=== PATIENT | male | born 1960 | race Two or more races ===

== ENCOUNTER 2025-04-13 14:19 | Emergency (ER) | payer MEDICAID, SELFPAY ==
[2025-04-13 14:28] VITALS: BP 150/81; PULSE 66; RESP 18; TEMP 36.5; O2SAT 98
[2025-04-13 14:29] VITALS: BMI 31.1
--- NOTE | 2025-04-13 14:30 | XR_ITS ---
Examination: CT abdomen and pelvis without contrast. Coronal 3-D reconstructions. Sagittal 2-D reconstructions. Date and time of exam: April 13, 2025, 1501 hours INDICATIONS: Hematuria and difficulty urinating today COMPARISON: September 23, 2017 CTDI: vol (mGy): 10.9 DLP: (mGycm): 651 Technique: Axial images of the abdomen have been obtained, 3 mm slice thickness Intravenous contrast material has not been administered. Low dose protocols were performed. One or more of the following dose reduction techniques were used; automated exposure control, adjustment of the mA and/or KV according to patient size, use of iterative reconstruction technique. Findings: Liver irregular in contour no liver or splenic lesions Contracted gallbladder No pancreatic or adrenal mass No renal or ureteral calculi, no hydronephrosis Aorta is not enlarged No bowel obstruction Normal appendix No diverticulitis 2 mm calcification at the anterior margin of the urinary bladder Moderate prostatomegaly Fat-containing inguinal hernias IMPRESSION: No renal or ureteral calculi, no hydronephrosis 2 mm calcification at the anterior margin possibly in the wall of the urinary bladder, clinical correlation advised Normal appendix No bowel obstruction diverticulitis or free air Moderate prostatomegaly
--- NOTE | 2025-04-13 14:31 | PD.EDRME ---
Rapid Medical Screening Exam RME Arrival date/time: 04/13/25 14:19 64-year-old male presents to the emergency department complaint of abdominal pain Chief Complaint: Urogenital-Male Vital signs: Vital Signs Temperature 97.7 F 04/13/25 14:28 Pulse Rate 66 04/13/25 14:28 Respiratory Rate 18 04/13/25 14:28 Blood Pressure 150/81 H 04/13/25 14:28 Pulse Oximetry (%) 98 04/13/25 14:28 Oxygen Delivery Method Room Air 04/13/25 14:28 Vital signs reviewed by provider: Yes Exam: On exam well-appearing does not appear ill or toxic no acute distress Clinical Impression: Lab work and imaging obtained
[2025-04-13 14:58] LABS: Collection Type, Urine Clean Catch; Squamous Epithelial Cell,Urine 0 /hpf (0-5)
[2025-04-13 15:08] LABS: Basophils # (Auto) 0.1 Thou/mm3 (0.0-0.2); Basophils % (Auto) 1 % (0-2.5); Eosinophils # (Auto) 0.2 Thou/mm3 (0.0-0.5); Eosinophils % (Auto) 3 % (0-10); Hematocrit 39.5 % (41.0-53.0); Hemoglobin 13.5 g/dL (13.5-16.0); Immature Granulocytes Auto 0.03 Thou/mm3 (0.00-0.00); Lymphocytes # (Auto) 1.3 Thou/mm3 (1.0-4.8); Lymphocytes % (Auto) 23 % (10-50); Mean Corpuscular HGB Conc 34.2 g/dl (31.0-37.0); Mean Corpuscular Hemoglobin 31.5 pg (25.0-35.0); Mean Corpuscular Volume 92 fL (80-100); Monocytes # (Auto) 0.8 Thou/mm3 (0.0-0.8); Monocytes % (Auto) 14 % (0-12); Neutrophils # (Auto) 3.5 Thou/mm3 (1.8-7.7); Neutrophils % (Auto) 59 % (37-80); Nucleated Red Blood Cell # 0.00 Thou/mm3 (0.00-0.00); Nucleated Red Blood Cell % 0 /100 WBC (0); Platelet Count 153 Thou/mm3 (140-440); RDW Standard Deviation 43.6 fL (35.1-43.9); Red Blood Count 4.28 Miln/mm3 (4.50-5.90); White Blood Count 5.9 Thou/mm3 (3.8-10.6)
[2025-04-13 15:11] LABS: Bilirubin,Urine Negative (Negative); Blood,Urine Negative (Negative); Clarity,Urine Clear (Clear/Hazy); Color,Urine Colorless (Lt Yel-Yel); Culture Indicated,Urine Not Indicated; Glucose, Urine Negative (Negative); Ketones,Urine Negative (Negative); Leukocyte Esterase,Urine Negative (Negative); Nitrite,Urine Negative (Negative); PH,Urine 6.5 (5.0-7.0); Protein,Urine Negative (Neg - Trace); RBC,Urine < 1 /hpf (0-3); Specific Gravity,Urine 1.009 (1.001-1.035); Urobilinogen,Urine Negative mg/dL (0.0-1.0); WBC,Urine < 1 /hpf (0-5)
[2025-04-13 15:19] LABS: Alanine Aminotransferase 18 U/L (10-49); Albumin, Serum 4.6 gm/dL (3.4-4.8); Albumin/Globulin Ratio 1.9 (1.2-2.2); Alkaline Phosphatase 82 U/L (46-116); Anion Gap 6 (7-16); Aspartate Amino Transferase 23 U/L (0-34); BUN/Creatinine Ratio 10 Ratio (12-20); Bilirubin,Total 0.3 mg/dL (0.3-1.2); Blood Urea Nitrogen 11 mg/dL (9-23); Calcium 9.6 mg/dL (8.3-10.6); Calcium (Corrected) 9.6 mg/dL (8.5-10.1); Carbon Dioxide 28.4 mMol/L (20.0-31.0); Chloride 105 mMol/L (98-107); Creatinine (Component) 1.1 mg/dL (0.6-1.3); Estimated Creatinine Clearance 82.5 mL/min (>60); Globulin 2.4 gm/dL (2.3-3.5); Glucose 127 mg/dL (74-106); Lipase 42 U/L (12-53); Osmolality,Calculated 278 (275-295); Potassium 4.6 mMol/L (3.4-5.1); Sodium 139 mMol/L (136-145); Total Protein 7.0 gm/dL (5.7-8.2); eGFR > 60 See Note
--- NOTE | 2025-04-13 15:44 | EDNOTE_ITS ---
ED Male Genitalurinary RME/HPI General Chief complaint: Urogenital-Male Stated complaint: Blood in urine X 1, trouble urinating Time Seen by Provider: 04/13/25 15:43 Arrival date/time: 04/13/25 14:19 64-year-old male with history of enlarged prostate presents to the emergency department today for complaints of urinary hesitancy ongoing x 1 month patient also reports scant amount of blood in his urine patient reports no fever nausea vomiting no back pain Limitations: no limitations RME / HPI RME / HPI Narrative: 04/13/25 14:19 64-year-old male presents to the emergency department complaint of abdominal pain Exam: On exam well-appearing does not appear ill or toxic no acute distress Impression: Lab work and imaging obtained Related Data Home Medications ?Medication ?Instructions ?Recorded ?Confirmed albuterol sulfate 90 mcg/actuation 2 puff inhalation Q 6H PRN Wheezing 11/16/21 11/16/21 aerosol inhaler alprazolam 0.5 mg tablet 0.5 mg PO QDAY 11/17/2110/22 doxazosin 8 mg tablet 8 mg PO QDAY 11/17/21 omeprazole 20 mg capsule,delayed 20 mg PO QDAY 2 11/17/21 release Previous Rx's ?Medication ?Instructions ?Recorded docusate sodium 100 mg capsule 100 mg PO BID #40 caps 11/17/21 (Colace) hydrocodone 5 mg-acetaminophen 325 1 tab PO Q6H PRN pa in (scale score 11/17/21 mg tablet 7-10) #28 tabs ibuprofen 600 mg tablet 600 mg PO Q8H PRN pain (scal e 11/17/21 score 4-6) #15 tabs tamsulosin 0.4 mg capsule (Flomax) 0.4 mg PO QDAY 14 d ays #14 caps 04/13/25 Allergies Allergy/AdvReac Type Severity Reaction Status Date / Time Penicillins Allergy Rash Verified 04/13/25 14:23 Review of Systems Review of Systems Systems Reviewed: All systems reviewed, normal except as documented Constitutional Constitutional: Reports system reviewed and no additional complaints, except as documented, Denies fever(s) and Denies headache(s) Eyes Eyes: Reports system reviewed and no additional complaints, except as documented and Denies blurry vision ENT Ears, Nose, Mouth, and Throat: Reports system reviewed and no additional complaints, except as documented, Denies headache(s), Denies nasal congestion and Denies nasal discharge Cardiovascular Cardiovascular: Reports system reviewed and no additional complaints, except as documented, Denies chest pain and Denies dyspnea Respiratory Respiratory: Reports system reviewed and no additional complaints, except as documented, Denies chest congestion, Denies cough and Denies dyspnea Gastrointestinal Gastrointestinal: Reports system reviewed and no additional complaints, except as documented and Denies abdominal pain Genitourinary Genitourinary: Reports system reviewed and no additional complaints, except as documented and Reports urinary hesitancy Integumentary/Breasts Skin/Breast: Reports system reviewed and no additional complaints, except as documented and Denies rash Neurologic Neurologic: Reports system reviewed and no additional complaints, except as documented, Reports as per HPI and Denies headache(s) Past Medical History Past Medical History NEUROLOGIC: Negative Neurological Disorders, Seizures or Amyotrophic Lateral Sclerosis (ALS/Chely Gehrig's) CARDIAC: Positive Edema (SLIGHT SWOLLEN ANKLES); Negative Cardiac Disorders, Congestive Heart Failure, Cellulitis or Varicose Veins RESPIRATORY: Negative Chronic Obstructive Pulmonary Disease (COPD) (ASTHMA HAS INHALER) or Tuberculosis GASTROINTESTINAL: Negative Gastrointestinal Disorders or Hepatitis GENITOURINARY: Negative Genitourinary Disorders or Renal Disease MUSCULOSKELETAL: Negative Musculoskeletal Disorders ENDOCRINE: Negative Endocrine Disorders, Diabetes Mellitus Type 1 or Diabetes Mellitus Type 2 HEMATOLOGIC: Positive Blood Disorders and Leukemia (2009) PSYCHO/SOCIAL: Positive Depression and Anxiety OTHER HISTORY: Positive Chemotherapy (2009), Radiation Therapy (2010) and Cancer (throat); Negative Hospitalization, Autoimmune Disease, Shingles, Falls, Blood Transfusions, Blood Transfusion Reaction, Anesthesia Reactions, Chicken Pox, Measles or Mumps Family History FAMILY HISTORY: Positive Family Respiratory Disorders (FATHER (ASTHMA)), Family Cancer (MOTHER (LEUKEMIA)) and Family Surgery (SISTER); Negative Family Psychiatric Problems, Family Cardiac Disorders, Family Gastrointestinal Problems or Family Anesthesia Reaction Surgical History SURGICAL: Negative Cardiac Surgery or Pacemaker Social History SMOKING STATUS: Former smoker ED Exam General Limitations: Present no limitations General appearance: Present alert and in no apparent distress Head Head exam: Present atraumatic Eye Eye exam: Present normal appearance, PERRL and EOMI ENT ENT exam: Present normal exam, normal oropharynx and mucous membranes moist Neck Neck exam: Present normal inspection, full ROM and trachea midline Chest Chest inspection: Present normal inspection and symmetric chest wall rise Respiratory Respiratory exam: Present normal lung sounds bilaterally Cardiovascular Cardiovascular exam: Present regular rate, normal rhythm and normal heart sounds Abdominal Exam Abdominal exam: Present soft and normal bowel sounds Extremities Exam Extremities exam: Present normal inspection and full ROM Back Exam Back exam: Present normal inspection and full ROM Neurological Exam Neurological exam: Present alert, oriented X3 and CN II-XII intact Psychiatric Psychiatric exam: Present normal affect and normal mood Skin Skin exam: Present warm, dry, intact and normal color Course Quality Measures none Orders Category Date Time Status CT abdomen pelvis wo con Stat Exams 04/13/25 14:30 Completed CBC Stat Lab 04/13/25 14:37 Completed Comprehensive Metabolic Panel Stat Lab 04/13/25 14:37 Completed Lipase Stat Lab 04/13/25 14:37 Completed UA, C/S IF [Urinalysis, C/S if Indicated] Stat Lab 04/13/25 14:37 Completed Vital Signs Vital signs: Vital Signs Temperature 97.7 F 04/13/25 14:28 Pulse Rate 66 04/13/25 14:28 Respiratory Rate 18 04/13/25 14:28 Blood Pressure 150/81 H 04/13/25 14:28 Pulse Oximetry (%) 98 04/13/25 14:28 Oxygen Delivery Method Room Air 04/13/25 14:28 O2 saturation 98% room air within normal limits Urogenital - Male MDM Narrative MDM Narrative:: 64-year-old male with history of enlarged prostate presents to the emergency dep artment today for complaints of urinary hesitancy ongoing x 1 month patient also reports scant amount of blood in his urine patient reports no fever nausea vomiting no back pain On exam patient well-appearing does not appear ill or toxic no distress Lab work and imaging obtained no renal or ureteral calculi noted no hydronephrosis normal appendix no bowel obstruction patient does have a 2 mm calcification of the anterior margin possibly in the wall of the urinary bladder. Patient is moderate prostamegaly I explained to the patient based on his CT scan results and presentation he must follow-up with PCP in order get a referral to urology as soon as possible for worsening symptoms or concerns to return immediately I gave the patient copy the CT report to bring to his PCP Patient data External records reviewed:: [facility] previous records Clinical information provided by:: patient Social determinants that could affect healthcare access:: none Patient has the following chronic illnesses:: See history How is presenting disease/condition affected by chronic disease/condition?: caused by Evaluation data The following diagnostics were reviewed and interpreted by me:: lab results and radiology exam(s) Lab and/or radiology exams considered but not ordered:: Labs radiology obtained Interpretation Summary: Reviewed by me Medications / Prescriptions Medications or Prescriptions considered but not ordered:: Given Medication administrations:: Given Consultations Consultation(s) initiated? (list below): No Diagnosis Urogenital Male Differential Diagnosis: urinary tract infection and inguinal hernia Most likely diagnosis given after review of the tests above:: Abdominal pain Admission Indicated Admission indicated?: not indicated Admission Request Was there a request for admission?: No Disposition Plan Disposition Plan: Discharge Discharge Attestation Discharge Attestation: The patient and all family members were given an opportunity to ask questions and understood the discharge instructions. Discharge instructions specifically effects, indications for sooner follow up or return to the emergency department, and the expected course of current diagnosis. Patient condition: Stable Discharge Plan Plan Patient Disposition: HOME (Self Care) Discharge Disposition comment: Stable Prescriptions/Referrals Prescriptions/Med Rec: New tamsulosin [Flomax] 0.4 mg capsule 0.4 mg PO QDAY 14 Days Qty: 14 0RF No Action albuterol sulfate 90 mcg/actuation Hfa Aerosol Inhaler 2 puff INHALATION Q6H PRN (Reason: Wheezing) alprazolam 0.5 mg Tablet 0.5 mg PO QDAY doxazosin 8 mg Tablet 8 mg PO QDAY omeprazole 20 mg Capsule,Delayed Release(Dr/Ec) 20 mg PO QDAY hydrocodone-acetaminophen 5-325 mg tablet 1 tab PO Q6H MDD 4 PRN (Reason: pain (scale score 7-10)) Qty: 28 0RF docusate sodium [Colace] 100 mg capsule 100 mg PO BID Qty: 40 0RF ibuprofen 600 mg tablet 600 mg PO Q8H PRN (Reason: pain (scale score 4-6)) Qty: 15 0RF Problem List Clinical Impression: Enlarged prostate, Hematuria Patient/Caregiver Discharge Instructions Education Materials: ED Hematuria Additional Instructions: You must have urological follow-up with soon as possible failure to do so can result in a poor outcome for worsening symptoms or concerns return immediately Print Language: Portuguese Stand Alone Forms: [facility] Award Info., Patient Portal Info Letter PA/CLINICAL RESEARCH SPECIALIST Supervising Physician PA/CLINICAL RESEARCH SPECIALIST Supervising Physician: Dr. mcmullen
== END 2025-04-13 16:45 | disposition home or self-care (01) ==
LOC: SERX 16:27
PROVIDERS: Emergency Provider Nurse Practitioner Primary Care; PCP Physician Assistant
DX: N40.1 Benign prostatic hyperplasia with lower urinary tract symptoms (principal); R33.9 Retention of urine, unspecified
CPT/HCPCS: 36415; 74176; 80053; 81001; 83690; 85025; 99283

== ENCOUNTER → 2025-05-07 | Outpatient (CLI) | payer MEDICAID, SELFPAY ==
--- NOTE | 2025-05-07 09:00 | XR_ITS ---
EXAMINATION: Esophagram standard Soft tissue lateral neck single view Upright PA chest single view 26 point fluoroscopic films of the esophagus Fluoroscopy Date and time: May 07, 2025, 0905 hours INDICATIONS: Diagnosis history throat cancer, difficulty swallowing reflex dry throat 5 months TECHNIQUE AND FINDINGS: Upright PA chest single view demonstrates normal heart size no pneumonia Soft tissue lateral neck demonstrates early degenerative disc disease C5-C6 Patient swallowed thin barium with primary peristaltic esophageal waves Moderate intermittent gastroesophageal reflux Moderate sliding esophageal hernia No stricture at the gastroesophageal junction No esophageal ulcerations IMPRESSION: Moderate sliding esophageal hernia Moderate intermittent gastroesophageal reflux No esophageal ulcerations No stricture of the gastroesophageal junction Given the patient's history and presentation, consider CT soft tissue neck post intravenous contrast follow-up
== END | disposition home or self-care (01) ==
LOC: SDIM 08:35
PROVIDERS: PCP Family Medicine; Referring Provider Family Medicine; Visit Provider Family Medicine
DX: K46.9 Unspecified abdominal hernia without obstruction or gangrene (principal); K21.9 Gastro-esophageal reflux disease without esophagitis
CPT/HCPCS: 74220; A4649